=== PATIENT | female | born 1975 | race American Indian/Alaskan Native ===

== ENCOUNTER 2017-09-03 05:42 | Day surgery (SDC) | payer MEDICAID ==
[2016-02-16 12:13] VITALS: BMI 36.8
[2017-09-03] MEDS ORDERED: ceFAZolin 1 gm in NS 0 GM/0 ML BAG IVPB ONE (07:05)
[2017-09-03] MEDS ORDERED: ceFAZolin 1 gm in NS 1 GM/100 ML BAG IVPB ONE (07:21)
[2017-09-03] MEDS ORDERED: Lactated Ringer's 1,000 ML IV ONE (07:40)
[2017-09-03] MEDS ORDERED: Propofol 10 mg/ml Inj (20 ML) ONE (07:43)
[2017-09-03] MEDS ORDERED: Succinylcholine Chloride 20 mg/ml Syr (5 ml) IV ONE (07:48)
[2017-09-03] MEDS ORDERED: Labetalol 25mg/5ml Syringe ONE (08:09)
[2017-09-03] MEDS ORDERED: Lactated Ringer's 1,000 ML IV SCH (08:30)
[2017-09-03] MEDS ORDERED: HYDROmorphone 0.5 mg/0.5 ml ISec IVP PRN (08:30)
[2017-09-03] MEDS ORDERED: Morphine 10 mg/5 ml Oral Soln PO PRN (08:31)
[2017-09-03] MEDS ORDERED: Dextrose 5%/0.45% NS 1,000 ML IV SCH (08:45)
[2017-09-03 10:12] VITALS: TEMP 97.8
[2017-09-03 11:26] VITALS: BP 127/73; PULSE 89; RESP 16; O2SAT 100
--- NOTE | 2017-09-04 03:27 | OP ---
PREOPERATIVE DIAGNOSIS: Chronic tonsillitis. POSTOPERATIVE DIAGNOSIS: Chronic tonsillitis. PROCEDURE: Tonsillectomy. SIGNIFICANT FINDINGS: 2+ tonsils. DESCRIPTION OF PROCEDURE: The patient was brought into the room and placed in a supine position. Anesthesia was initiated through an ET tube. The patient was draped in the usual manner. 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 Right tonsil was grabbed and pulled medially. Incision was made in the anterior tonsillar pillar using coblation. Dissections were done between tonsil and tonsillar fossa using coblation until the tonsil was removed. Bleeding was controlled using coblation. Next, the other tonsil was grabbed and pulled medially, incision was made in the anterior tonsillar pillar using coblation. Dissection was done between tonsil and tonsillar fossa using coblation until the tonsil was removed. Bleeding was controlled using coblation. Both tonsillar beds were rubbed vigorously with coblation wand. No bleeding was noted. Mouth gag was let down for 30 seconds and put back up, no bleeding was noted. Mouth gag was taken down and removed. The patient was taken off anesthesia and taken to the recovery room in stable manner. Neville Decker MD
== END 2017-09-03 11:30 | disposition home or self-care (01) ==
LOC: C.SDS 05:42
PROVIDERS: ATTEND Otolaryngology
DX: J35.01 Chronic tonsillitis (principal)
CPT/HCPCS: 42826; 82948; 88304; J0690; J2704; J3010; J7040; J7120

== ENCOUNTER 2017-09-08 22:42 | Emergency (ER) | payer MEDICAID ==
[2017-09-08 22:43] VITALS: BMI 36.8
[2017-09-08 22:51] VITALS: BP 154/97; PULSE 117; RESP 20; TEMP 99.3; O2SAT 100
[2017-09-08] MEDS ORDERED: Morphine 4 MG/ML VIAL ONE (23:07)
--- NOTE | 2017-09-09 00:14 | C.PDOC ---
History Of Present Illness 42 year old female is brought to the ED by EMS for evaluation of throat pain. Patient is status post tonsillectomy on 09/03 done by . Patient states she was prescribed oxycodone/xyzal for pain and was instructed to take 1-2 tsp q6h but she is only taking 1 tea spoon every 6 hours because the medication makes her itchy. Patient is able to drink fluids, no active bleeding is seen. Patient denies fever, chills, neck pain, neck swelling, facial swelling. Time Seen by Provider: 09/08/17 23:04 Chief Complaint (Nursing): ENT Problem History Per: Patient History/Exam Limitations: None Onset/Duration Of Symptoms: Days Current Symptoms Are (Timing): Still Present Quality (Mouth/Throat): Tenderness Severity: Mild Anticoagulant/Antiplatlet Use?: No Recent Aspirin Use: No Past Medical History Reviewed: Historical Data, Nursing Documentation, Vital Signs Vital Signs: Last Vital Signs Temp 99.3 F 09/08/17 22:46 Pulse 117 H 09/08/17 22:46 Resp 20 09/08/17 22:46 BP 154/97 H 09/08/17 22:46 Pulse Ox 100 09/09/17 00:19 - Medical History PMH: Depression, Gall Bladder Disease (CHOLECYSTECTOMY 2014), HTN, Hypothyroidism, Parkinson's Disease (???patient denies) Denies: Chronic Kidney Disease Surgical History: Cholecystectomy, Tonsillectomy - [facility] Procedures LAPAROSCOPIC CHOLECYSTECTOMY (01/12/15) PERCUTAN NEEDLE BX OF LIVER (01/12/15) Family History: States: Unknown Family Hx - Social History Hx Alcohol Use: No Hx Substance Use: No Review Of Systems Constitutional: Negative for: Fever, Chills ENT: Positive for: Throat Pain Respiratory: Negative for: Cough Gastrointestinal: Negative for: Nausea, Vomiting Musculoskeletal: Negative for: Neck Pain Skin: Negative for: Rash Neurological: Negative for: Headache Physical Exam - Physical Exam Appears: Non-toxic, No Acute Distress Skin: Normal Color, Warm, Dry Head: Atraumatic, Normacephalic Eye(s): bilateral: Normal Inspection, PERRL Nose: No Discharge Oral Mucosa: Moist Throat: Erythema, No Drooling, Other (white patches noticed on surgical site otherwise no swelling, uvula in midline) Neck: Normal ROM, Supple, Other (tenderness submandibular area) Neurological/Psych: Oriented x3, Normal Speech Gait: Steady ED Course And Treatment O2 Sat by Pulse Oximetry: 100 (On RA) Pulse Ox Interpretation: Normal Progress Note: Plan: - Morphine 2 mg IM. On reassessment, patient is resting comfortably, and is in no acute distress. Able to drink fluids, now speaking fully with clear speech. Patient was instructed to follow up with physician/ clinic in 1-2 days for further evaluation. Disposition Counseled Patient/Family Regarding: Diagnosis, Need For Followup, Rx Given - Disposition Referrals: Neville Decker MD [Staff Provider] - Disposition: HOME/ ROUTINE Disposition Time: 00:46 Condition: STABLE Additional Instructions: May continue Oxycodone elixir with benadryl If itching persists then fill out codeine elixir as prescribed for pain Keep appointment on Saturday with Dr Decker Return to ER if worse Prescriptions: Acetaminophen/Codeine [Tylenol/Codeine elixir] 15 ml PO Q6H #100 ml Instructions: Tonsillectomy (DC) Forms: [employer] (Romanian) - Clinical Impression Clinical Impression: Post-tonsillectomy pain - 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 - Scribe Statement The provider has reviewed the documentation as recorded by the Scribe Blayne Carroll All medical record entries made by the Scribe were at my direction and personally dictated by me. I have reviewed the chart and agree that the record accurately reflects my personal performance of the history, physical exam, medical decision making, and the department course for this patient. I have also personally directed, reviewed, and agree with the discharge instructions and disposition.
[2017-09-09] MEDS ORDERED: DiphenhydrAMINE 12.5 mg/5 ml LIQ UD (5 ml) ONE (00:19)
[2017-09-09] MEDS ORDERED: DiphenhydrAMINE 12.5 mg/5 ml LIQ UD (5 ml) PO STA (00:19)
== END 2017-09-09 01:06 | disposition home or self-care (01) ==
LOC: C.ER 22:42
DX: G89.18 Other acute postprocedural pain (principal)
CPT/HCPCS: 96372; 99283; J2270